=== PATIENT | female | born 1975 | race Caucasian/White ===

== ENCOUNTER 2017-07-23 08:32 | Emergency (ER) | payer BC ==
[2017-07-23 08:52] VITALS: BP 140/85
--- NOTE | 2017-07-23 09:26 | RAD ---
HISTORY: Right foot pain COMPARISONS: None VIEWS: 3, Frontal, lateral, and oblique views of the right foot FINDINGS: BONE DENSITY: Normal. BONES: There is no displaced fracture. There are calcaneal enthesophytes. JOINTS: There is osteoarthritis of the first MTP joint. There is mild osteoarthritis of the midfoot. ALIGNMENT: There is no dislocation. SOFT TISSUES: Unremarkable. OTHER FINDINGS: None. IMPRESSION: 1. HEEL SPURS. 2. OSTEOARTHRITIS. 3. NO ACUTE OSSEOUS INJURY. IF SYMPTOMS PERSIST, RECOMMEND REPEAT IMAGING.
--- NOTE | 2017-07-23 09:28 | UC ---
Lower Extremity/Ankle HPI - HPI Summary HPI Summary: right foot pain x 1 day twisted her right foot last night, pain with walking, difficulty to bear weight - History of Current Complaint Chief Complaint: UCTrauma Stated Complaint: RIGHT FOOT COMPLAINT Time Seen by Provider: 07/23/17 08:56 Hx Obtained From: Patient Hx Last Menstrual Period: 07/06/17 ?: No Onset/Duration: Sudden Onset, Lasting Days - 1, Still Present Severity Initially: Moderate Severity Currently: Moderate Pain Intensity: 0 Aggravating Factor(s): Standing, Ambulation Alleviating Factor(s): Rest, Elevation Able to Bear Weight: Yes - Allergies/Home Medications Allergies/Adverse Reactions: Allergies Allergy/AdvReac Type Severity Reaction Status Date / Time No Known Allergies Allergy Verified 07/23/17 08:52 Home Medications: Home Medications NK [No Home Medications Reported] 07/23/17 [History Confirmed 07/23/17] PMH/Surg Hx/FS Hx/Imm Hx Previously Healthy: Yes - Surgical History Surgical History: None - Family History Known Family History: Negative: Diabetes - Social History Alcohol Use: Rare Substance Use Type: Marijuana Smoking Status (MU): Light Every Day Tobacco Smoker Type: Cigarettes Review of Systems Constitutional: Negative Skin: Negative Eyes: Negative ENT: Negative Respiratory: Negative Is Patient Immunocompromised?: No All Other Systems Reviewed And Are Negative: Yes Physical Exam Triage Information Reviewed: Yes Appearance: Well-Appearing, No Pain Distress, Well-Nourished Vital Signs: Initial Vital Signs Temp 97.8 F 07/23/17 08:46 Pulse 90 07/23/17 08:46 Resp 18 07/23/17 08:46 BP 140/85 07/23/17 08:46 Pulse Ox 98 07/23/17 08:46 Vital Signs Reviewed: Yes Eye Exam: Normal Eyes: Positive: Conjunctiva Clear ENT: Positive: Normal ENT inspection, Hearing grossly normal, Pharynx normal Neck: Positive: Supple, Nontender, No Lymphadenopathy Respiratory: Positive: Chest non-tender, Lungs clear, Normal breath sounds, No respiratory distress Cardiovascular: Positive: RRR, No Murmur, Pulses Normal Musculoskeletal: Positive: Other: - right foot: no swelling, no erythema , + tenderness 1th metatarsal bone Diagnostics - Laboratory Diagnostic Studies Completed/Ordered: right foot xray: IMPRESSION: 1. HEEL SPURS. 2. OSTEOARTHRITIS. 3. NO ACUTE OSSEOUS INJURY. IF SYMPTOMS PERSIST, RECOMMEND REPEAT IMAGING. Lower Extremity Course/Dx - Differential Dx/Diagnosis Provider Diagnoses: sprain right foot Discharge - Sign-Out/Discharge Documenting (check all that apply): Discharge/Admit/Transfer - Discharge Plan Condition: Stable Disposition: HOME Referrals: Non Staff,Doctor [Primary Care Provider] - - Billing Disposition and Condition Condition: STABLE Disposition: HOME
== END 2017-07-23 09:37 | disposition home or self-care (01) ==
LOC: UCCORT 08:32
DX: S93.601A Unspecified sprain of right foot, initial encounter (principal); X50.0XXA Overexertion from strenuous movement or load, initial encounter; Y93.9 Activity, unspecified; Y92.9 Unspecified place or not applicable; F17.210 Nicotine dependence, cigarettes, uncomplicated; M77.31 Calcaneal spur, right foot
CPT/HCPCS: 99202; G0463